=== PATIENT | female | born 1960 | race Caucasian/White ===

== ENCOUNTER 2025-03-02 10:01 | Day surgery (SDC) | payer OTHER ==
[2025-02-09 14:17] VITALS: BP 162/93
[2025-03-02] VITALS (11 sets, daily range): BP systolic 116–149; BP diastolic 72–83
[~2025-03-02] VITALS: Ht 162.6 cm; Wt 89.7 kg
[~2025-03-02 10:01] MED LIST: ADVIL PM PO; ARTHRITIS PAIN150 GM TOP; CULTURELLE KID1 EA13 PO; IBUP800 PO; LOSARTAN POTASS50 M1 PO; MELO7.5 PO; TYLENOL PM PO; VITAMIN D5000 UNIT PO
[2025-03-02] MEDS ORDERED: Tranexamic Acid 100 ML IV SCH (10:20)
[2025-03-02] MEDS ORDERED: Chlorhexidine Mouth Care 15 ML UDC MT SCH (10:20)
[2025-03-02] MEDS ORDERED: CeFAZolin Sodium 2,000 MG in NS 100 ML IV SCH ×2 (10:20→22:00)
[2025-03-02] MEDS ORDERED: Ropivacaine 0.5% HCl/Pf 123.125 MG,EPINEPHrine HCL 0.25 MG,Ketorolac Tromethamine 15 MG... INFIL SCH (10:20)
[2025-03-02] MEDS ORDERED: BENADRYL25 MG PO (10:41)
--- NOTE | 2025-03-02 10:45 | NUR ---
Pre-Op teaching done. Pt verbalizes understanding. History, Chart, Medications and Allergies reviewed before start of procedure. Patient confirms NPO status and agrees with scheduled surgery. Patient States Post-Procedure ride home has been arranged. IN TO SDS VIA WC.
[2025-03-02] MEDS ORDERED: Metoclopramide HCl 5MG / ML 2ML Vial IV PRN (11:20)
[2025-03-02] MEDS ORDERED: HYDROmorphone HCl/Pf 1MG SYR IV PRN ×2 (11:20→15:10)
[2025-03-02] MEDS ORDERED: Magnesium Hydroxide Conc 10 ML UDC PO PRN (11:20)
[2025-03-02] MEDS ORDERED: Prochlorperazine Edisylate 10 mg Vial IV PRN (11:25)
[2025-03-02] MEDS ORDERED: Ondansetron HCl 2 MG / ML 2ML Vial IV PRN ×2 (11:25→15:10)
--- NOTE | 2025-03-02 11:27 | NUR ---
REPORT GIVEN TO MACIE AVITIA RN.
[2025-03-02] MEDS ORDERED: Bupivacaine 0.75%/Dext 8.25% 2 ML Amp IT ONE (14:13)
[2025-03-02] MEDS ORDERED: Midazolam HCl 1MG / ML 2ML Vial ONE (14:15)
[2025-03-02] MEDS ORDERED: FentaNYL Citrate 50 MCG/ML 2 ML Injection ONE (14:15)
[2025-03-02] MEDS ORDERED: Labetalol HCL 5 MG/ML 4ML Injection (Single Dose) IV PRN (15:10)
[2025-03-02] MEDS ORDERED: FentaNYL Citrate 50 MCG/ML 2 ML Injection IV PRN ×3 (15:10)
[2025-03-02] MEDS ORDERED: Phenylephrine HCl 100 MCG/ML-NS 10MLSYR (1MG/10ML) ONE (15:37)
[2025-03-02] MEDS ORDERED: Dexamethasone Sod Phos 10 MG/ML 1ML VIAL XX ONE (16:25)
[2025-03-02] MEDS ORDERED: Ondansetron HCl 2 MG / ML 2ML Vial IV ONE (16:25)
[2025-03-02] MEDS ORDERED: Ketorolac Tromethamine 15mg Vial IV SCH (18:00)
--- NOTE | 2025-03-02 18:32 | NUR ---
SHIFT SUMMARY PATIENT POST OP DAY 0 FOR RIGHT HIP REPLACEMENT. VSS. MEDICATED PER EMAR FOR PAIN. TOLERATING PO. PATIENT DENIES URGE TO VOID POST OP AT THIS TIME. NO OTHER CHANGES. WILL REPORT TO MEDICAL ONCOLOGY PHYSICIAN RN.
[2025-03-03 04:17] VITALS: BP 120/66
[2025-03-03 04:28] LABS: BASOPHILS ABSOLUTE AUTO 0.01 K/mm3 (0.00-0.23); BASOPHILS PERCENT AUTO 0 % (0-2); EOSINOPHILS ABSOLUTE AUTO 0.00 K/mm3 (0.00-0.68); EOSINOPHILS PERCENT AUTO 0 % (0-6); Hematocrit 32.2 % (33.0-51.0); Hemoglobin 10.7 g/dL (11.5-16.0); IMMATURE GRAN ABSOLUTE AUTO 0.05 K/mm3 (0.00-0.10); IMMATURE GRAN PERCENT AUTO 1 % (0-1); LYMPHOCYTES ABSOLUTE AUTO 0.59 K/mm3 (0.84-5.20); LYMPHOCYTES PERCENT AUTO 5 % (21-46); MONOCYTES ABSOLUTE AUTO 0.73 K/mm3 (0.16-1.47); MONOCYTES PERCENT AUTO 7 % (4-13); Mean Corpuscular HGB Conc 33.2 g/dL (31.5-36.5); Mean Corpuscular Volume 93 fL (80-100); NEUTROPHILS ABSOLUTE AUTO 9.58 K/mm3 (1.96-9.15); NEUTROPHILS PERCENT AUTO 87 % (41-73); NRBC ABSOLUTE 0.00 K/mm3 (0.00-0.02); NRBC Auto 0.0 /100 WBC (0.0-0.2); Platelet Count 245 K/mm3 (150-400); RDW Coefficient Variation 12.3 % (11.7-14.2); RDW Standard Deviation 42.0 fL (35.1-46.3)
[2025-03-03 04:45] LABS: Anion Gap 9.0 mmol/L (3-11); Blood Urea Nitrogen 13.0 mg/dL (8-24); CO2, Blood 25.0 mmol/L (21-32); Calcium, Blood 8.4 mg/dL (8.5-10.1); Chloride, Blood 104.0 mmol/L (98-108); Creatinine, Blood 0.6 mg/dL (0.40-1.00); Glucose, Blood 137.0 mg/dL (70-99); Magnesium, Blood 2.1 mg/dL (1.6-2.4); Potassium, Blood 4.0 mmol/L (3.5-5.5); Sodium, Blood 134.0 mmol/L (136-145)
--- NOTE | 2025-03-03 05:36 | NUR ---
SHIFT SUMMARY TRACIE WAS ALERT AND FULLY ORIENTED ON ASSESSMENT. PAIN IS WELL MANAGED. DISTAL CIRCULATION AND SENSATION TO EXTS INTACT. INCISION SITE NOTED TO HAVE MINOR BLEEDING AT INFERIOR PORTION. DRESSING REINFORCE, C/D/I AT THIS TIME. PT AMBULATING AND VOIDING APPROPRIATELY. NO ACUTE EVENTS OR NOTED CHANGES TO PT CONDITION.
[2025-03-03] MEDS ORDERED: ACET500 PO (07:14)
[2025-03-03] MEDS ORDERED: ASPI81CH PO (07:15)
[2025-03-03] MEDS ORDERED: DOCU100 PO (07:16)
[2025-03-03] MEDS ORDERED: OXAYDO5 M1 PO (07:16)
[2025-03-03 07:17] VITALS: BP 144/84
[2025-03-03] MEDS ORDERED: Lactobacil 2-S.Thermo-Bifido 1 1 Cap PO SCH (09:00)
--- NOTE | 2025-03-03 09:48 | NUR ---
DISCHARGE SUMMARY ADMITTED ON 03/02 FOR R FAITH. A&O x4, VSS, HRR. WORKED w/THERAPY THIS MORNING, AMBULATED IN HALLWAY. USES WALKER ON AMBULATION. PIRNEO DRESSING OVER SURGICAL SITE, C/D/I. AQUACEL APPLIED OVER DISTAL SITE OF DRESSING FOR DRAINAGE THIS MORNING. PAIN CONTROLLED WELL PER EMAR. VOIDED SUCCESSFULLY. TOLERATING REGULAR DIET WELL. DISCHARGE INSTRUCTIONS REVIEWED & GIVEN, PT VERBALIZED UNDERSTANDING ESCORTED OUT VIA WC.
== END 2025-03-03 09:35 | disposition home or self-care (01) ==
LOC: ORSCMMR 10:01 → ORD 11:30 → ORSCMMR 11:30 → SURS 16:57 → ORSCMMR 03-03 09:35
PROVIDERS: Orthopaedic Surgery
PROC: 0SR90JA Replacement of Right Hip Joint with Synthetic Substitute, Uncemented, Open Approach (ICD-10-PCS; principal; 2025-03-02 12:00)
DX: M16.11 Unilateral primary osteoarthritis, right hip (principal); I10 Essential (primary) hypertension; E66.9 Obesity, unspecified; Z68.34 Body mass index [BMI] 34.0-34.9, adult; Z79.899 Other long term (current) drug therapy
CPT/HCPCS: 36415; 72170; 80048; 83735; 85025; 97110; 97116; 97162; A9270; C1713; C1776; J0166; J0690; J0735; J1100; J1885; J2250; J2371; J2405; J2704; J2795; J3010; J7120